=== PATIENT | female | born 1960 | race Caucasian/White ===

== ENCOUNTER 2019-12-31 10:42 | Emergency (ER) | payer MEDICAID, OTHER ==
[~2019-12-31] VITALS: Ht 144.8 cm; Wt 73.0 kg
[~2019-12-31 10:42] MED LIST: DOCU-138; DULO30CA2; LISI10TA5; METF1000; SERT-112; SITA50TA3; ZIPR80CA2
[2019-12-31] MEDS ORDERED: MUPIROCIN 2% OINT 22GM TOP STA (12:39)
[2019-12-31 13:07] VITALS: BP 129/63
== END 2019-12-31 13:13 | disposition home or self-care (01) ==
LOC: ER 10:42
DX: L02.211 Cutaneous abscess of abdominal wall (principal); F20.9 Schizophrenia, unspecified; E11.9 Type 2 diabetes mellitus without complications; Z86.19 Personal history of other infectious and parasitic diseases; Z79.84 Long term (current) use of oral hypoglycemic drugs; Z88.0 Allergy status to penicillin
CPT/HCPCS: 99283

== ENCOUNTER 2020-09-24 15:57 | Emergency (ER) | payer MEDICAID, OTHER ==
[~2020-09-24] VITALS: Ht 144.8 cm; Wt 66.0 kg
[2020-09-24] MEDS ORDERED: LIDOCAINE HCL/EPINEPHRINE 1%-EPI 1:100,000 30 ML VIAL INFIL ONE (16:45)
[2020-09-24] MEDS ORDERED: IBUPROFEN 600MG TABLET PO ONE (16:45)
[2020-09-24 16:46] VITALS: BP 116/78
[2020-09-24] MEDS ORDERED: LIDOCAINE HCL/EPINEPHRINE 1%-EPI 1:100,000 20 ML VIAL INFIL ONE (17:00)
[2020-09-24] MEDS ORDERED: SULF1TAB47 MT (17:13)
== END 2020-09-24 17:23 | disposition home or self-care (01) ==
LOC: ER 15:57
DX: L02.11 Cutaneous abscess of neck (principal); E11.9 Type 2 diabetes mellitus without complications; F20.9 Schizophrenia, unspecified; Z86.19 Personal history of other infectious and parasitic diseases; Z79.84 Long term (current) use of oral hypoglycemic drugs; Z88.0 Allergy status to penicillin
CPT/HCPCS: 10060; 82962; 99282; J3490

== ENCOUNTER 2020-09-26 12:13 | Emergency (ER) | payer OTHER ==
[~2020-09-26] VITALS: Ht 144.8 cm; Wt 73.6 kg
[~2020-09-26 12:13] MED LIST changes: +SULF1TAB47 MT
[2020-09-26 12:23] VITALS: BP 113/84
[2020-09-26] MEDS ORDERED: LIDOCAINE HCL/EPINEPHRINE 1%-EPI 1:100,000 20 ML VIAL INFIL ONE (13:45)
== END 2020-09-26 14:00 | disposition home or self-care (01) ==
LOC: ER 12:13
DX: L02.11 Cutaneous abscess of neck (principal); E11.9 Type 2 diabetes mellitus without complications; Z88.0 Allergy status to penicillin; Z79.899 Other long term (current) drug therapy; Z86.59 Personal history of other mental and behavioral disorders; Z48.00 Encounter for change or removal of nonsurgical wound dressing
CPT/HCPCS: 10060; 82962; 99283

== ENCOUNTER 2020-09-28 10:22 | Emergency (ER) | payer OTHER ==
[~2020-09-28] VITALS: Ht 144.8 cm; Wt 82.0 kg
[2020-09-28 10:23] VITALS: BP 124/67
[2020-09-28] MEDS ORDERED: MUPIROCIN 2% OINT 22GM TOP SCH (10:45)
== END 2020-09-28 11:40 | disposition home or self-care (01) ==
LOC: ER 10:53
DX: L02.811 Cutaneous abscess of head [any part, except face] (principal); L01.00 Impetigo, unspecified; E11.9 Type 2 diabetes mellitus without complications; Z79.899 Other long term (current) drug therapy; Z88.0 Allergy status to penicillin; Z86.19 Personal history of other infectious and parasitic diseases
CPT/HCPCS: 99283

== ENCOUNTER 2021-12-17 07:00 | Emergency (ER) | payer OTHER ==
[~2021-12-17] VITALS: Ht 162.6 cm; Wt 65.0 kg
[~2021-12-17 07:00] MED LIST changes: +LISI10TA26; -LISI10TA5; +ONDA4TAB5 MT
[2021-12-17 08:33] LABS: BASOPHILS % 0.4 % (0.0-2.0); EOSINOPHILS % 0.5 % (0.0-5.0); HEMATOCRIT. 41.4 % (36.0-48.0); HEMOGLOBIN. 14.1 g/dL (12.0-16.0); LYMPHOCYTES % 15.9 % (20.0-50.0); MEAN CORPUSCULAR HEMOGLOBIN 28.8 pg (28.0-32.0); MEAN CORPUSCULAR VOLUME 84.8 fL (81.0-99.0); MEAN PLATELET VOLUME 7.8 fl (7.4-10.4); MONOCYTES % 9.8 % (2.0-8.0); NEUTROPHILS % 73.4 % (40.0-76.0); PLATELET 189 x1000/uL (130-400); RED BLOOD CELL COUNT 4.88 mill/uL (4.2-5.4); RED CELL DISTRIBUTION WIDTH 14.9 % (11.6-14.6)
[2021-12-17 08:43] LABS: CHLORIDE 100 mEq/L (98-107)
[2021-12-17 08:49] LABS: ETHANOL BLOOD < 10 mg/dL
[2021-12-17 09:13] LABS: CLARITY URINE CLEAR (CLEAR); COLOR URINE YELLOW (YELLOW); KETONES URINE NEGATIVE (NEGATIVE); LEUKOCYTE ESTERASE URINE 2+ (NEGATIVE); NITRITE URINE NEGATIVE (NEGATIVE); OCCULT BLOOD URINE NEGATIVE (NEGATIVE); PH URINE 6.5 (4.5-8.0); PROTEIN URINE NEGATIVE (NEGATIVE); SPECIFIC GRAVITY URINE 1.031 (1.005-1.030); UROBILINOGEN URINE 0.2 E.U./dL (0.2-1.0)
[2021-12-17 09:29] LABS: *BARBITURATES SCREEN URINE NEGATIVE (NEGATIVE); *BENZODIAZEPINES SCREEN URINE PRESUMTIVE POSITIVE (NEGATIVE); *COCAINE SCREEN URINE NEGATIVE (NEGATIVE); CANNABINOID URINE SCREEN NEGATIVE (NEGATIVE); METHADONE URINE SCREEN NEGATIVE (NEGATIVE); OPIATES URINE SCREEN NEGATIVE (NEGATIVE); PHENCYCLIDINE URINE SCREEN NEGATIVE (NEGATIVE)
[2021-12-17 09:30] LABS: *AMPHETAMINES SCREEN URINE NEGATIVE (NEGATIVE)
[2021-12-17] MEDS ORDERED: LEVOFLOXACIN 750MG PREMIX 150 ML IV ONE (10:15)
[2021-12-17] MEDS ORDERED: DEXTROSE 50% WATER 50ML SYRINGE IV ONE (11:45)
[2021-12-17] MEDS ORDERED: ACETAMINOPHEN 650MG SUPP PR ONE (16:00)
[2021-12-17 19:40] VITALS: BP 128/71
== END 2021-12-17 20:00 | disposition short-term general hospital (02) ==
LOC: ER 07:00
DX: N39.0 Urinary tract infection, site not specified (principal); G93.49 Other encephalopathy; F20.9 Schizophrenia, unspecified; E78.00 Pure hypercholesterolemia, unspecified; E11.9 Type 2 diabetes mellitus without complications; Z79.84 Long term (current) use of oral hypoglycemic drugs; Z88.0 Allergy status to penicillin; Z20.822 Contact with and (suspected) exposure to COVID-19
CPT/HCPCS: 36415; 70450; 70496; 70498; 71045; 80053; 80305; 80320; 81003; 82962; 84484; 85025; 87086; 87426; 93005; 96374; 96375; 99285; J1956; G0480

== ENCOUNTER 2022-03-23 18:46 | Emergency (ER) | payer OTHER ==
[~2022-03-23] VITALS: Ht 162.6 cm; Wt 70.0 kg
[2022-03-23 19:53] LABS: BASOPHILS % 0.7 % (0.0-2.0); EOSINOPHILS % 1.4 % (0.0-5.0); HEMATOCRIT. 43.9 % (36.0-48.0); HEMOGLOBIN. 14.8 g/dL (12.0-16.0); LYMPHOCYTES % 39.6 % (20.0-50.0); MEAN CORPUSCULAR HEMOGLOBIN 28.8 pg (28.0-32.0); MEAN CORPUSCULAR VOLUME 85.4 fL (81.0-99.0); MEAN PLATELET VOLUME 7.8 fl (7.4-10.4); MONOCYTES % 7.4 % (2.0-8.0); NEUTROPHILS % 50.9 % (40.0-76.0); PLATELET 204 x1000/uL (130-400); RED BLOOD CELL COUNT 5.14 mill/uL (4.2-5.4); RED CELL DISTRIBUTION WIDTH 13.1 % (11.6-14.6)
[2022-03-23 20:03] LABS: CHLORIDE 104 mEq/L (98-107)
[2022-03-23 20:10] LABS: ETHANOL BLOOD 221 mg/dL
[2022-03-24 04:05] VITALS: BP 109/67
== END 2022-03-24 04:15 | disposition home or self-care (01) ==
LOC: ER 18:46
DX: F10.129 Alcohol abuse with intoxication, unspecified (principal); E11.9 Type 2 diabetes mellitus without complications; E78.00 Pure hypercholesterolemia, unspecified; F20.9 Schizophrenia, unspecified; Y90.7 Blood alcohol level of 200-239 mg/100 ml; Z79.84 Long term (current) use of oral hypoglycemic drugs; Z88.0 Allergy status to penicillin
CPT/HCPCS: 36415; 80053; 80320; 85025; 99285; G0480

== ENCOUNTER 2022-10-08 10:33 | Emergency (ER) | payer MEDICAID, OTHER ==
[~2022-10-08] VITALS: Ht 157.5 cm; Wt 69.0 kg
[2022-10-08] MEDS ORDERED: ASPIRIN 81MG TABLET PO ONE (11:00)
[2022-10-08 11:24] LABS: CHLORIDE 102 mEq/L (98-107)
[2022-10-08 11:32] LABS: ETHANOL BLOOD < 10 mg/dL
[2022-10-08 11:39] LABS: HEMATOCRIT. 44.5 % (36.0-48.0); MEAN CORPUSCULAR HEMOGLOBIN 28.7 pg (28.0-32.0); MEAN CORPUSCULAR VOLUME 85.2 fL (81.0-99.0); PLATELET 152 x1000/uL (130-400); RED BLOOD CELL COUNT 5.23 mill/uL (4.2-5.4); RED CELL DISTRIBUTION WIDTH 13.6 % (11.6-14.6)
[2022-10-08 12:54] LABS: PLATELET ESTIMATE NORMAL
[2022-10-08 13:00] VITALS: BP 118/61
[2022-10-08 14:58] LABS: CLARITY URINE CLOUDY (CLEAR); COLOR URINE YELLOW (YELLOW); KETONES URINE NEGATIVE (NEGATIVE); LEUKOCYTE ESTERASE URINE 3+ (NEGATIVE); NITRITE URINE NEGATIVE (NEGATIVE); OCCULT BLOOD URINE TRACE (NEGATIVE); PROTEIN URINE TRACE (NEGATIVE); SPECIFIC GRAVITY URINE 1.023 (1.005-1.030); UROBILINOGEN URINE 0.2 E.U./dL (0.2-1.0)
== END 2022-10-08 16:11 | disposition admitted as inpatient to this hospital (09) ==
LOC: ER 10:33
DX: R07.89 Other chest pain (principal); I25.2 Old myocardial infarction; I10 Essential (primary) hypertension; E78.00 Pure hypercholesterolemia, unspecified; E11.9 Type 2 diabetes mellitus without complications; Z20.822 Contact with and (suspected) exposure to COVID-19; Z88.0 Allergy status to penicillin; Z79.899 Other long term (current) drug therapy; Z86.59 Personal history of other mental and behavioral disorders
CPT/HCPCS: 36415; 71045; 80053; 80320; 81003; 84145; 84484; 85025; 87086; 87426; 87804; 93005; 99285; C9803; Z7610; G0480

== ENCOUNTER 2023-10-13 11:59 | Emergency (ER) | payer MEDICAID, OTHER ==
[~2023-10-13] VITALS: Ht 157.5 cm; Wt 55.0 kg
[2023-10-13 12:05] VITALS: O2SAT 99
[2023-10-13 12:46] LABS: BASOPHILS % 0.8 % (0.0-2.0); HEMATOCRIT. 41.1 % (36.0-48.0); HEMOGLOBIN. 13.9 g/dL (12.0-16.0); LYMPHOCYTES % 27.1 % (20.0-50.0); MEAN CORPUSCULAR HEMOGLOBIN 27.7 pg (28.0-32.0); MEAN CORPUSCULAR HGB CONC 33.8 g/dL (31.0-37.0); MEAN CORPUSCULAR VOLUME 81.8 fL (81.0-99.0); MEAN PLATELET VOLUME 7.9 fl (7.4-10.4); MONOCYTES % 9.9 % (2.0-8.0); NEUTROPHILS % 59.2 % (40.0-76.0); PLATELET 128 x1000/uL (130-400); RED BLOOD CELL COUNT 5.02 mill/uL (4.2-5.4); RED CELL DISTRIBUTION WIDTH 14.3 % (11.6-14.6); WHITE BLOOD COUNT 2.8 x1000/uL (4.5-11.0)
[2023-10-13 13:11] LABS: ALANINE AMINOTRANSFERASE 8 IU/L (10-49); ASPARTATE AMINOTRANSFERASE 17 IU/L (<34); BILIRUBIN TOTAL 0.4 mg/dL (0.1-1.0); CALCIUM 9.7 mg/dL (8.7-10.4); CARBON DIOXIDE 29 mEq/L (21-32); CHLORIDE 105 mEq/L (98-107); CREATININE 0.6 mg/dL (0.6-1.0); GLUCOSE 159 mg/dL (70-105); POTASSIUM 4.7 mEq/L (3.5-5.1); PROTEIN TOTAL 8.4 g/dL (6.0-8.3); SODIUM 139 mEq/L (136-145); UREA NITROGEN BLOOD 6 mg/dL (9-23)
[2023-10-13] MEDS ORDERED: IOHEXOL-300 100 ML BOTTLE ONE (14:12)
[2023-10-13] MEDS ORDERED: POLY17PO3 MT (14:19)
[2023-10-13 14:35] VITALS: BP 135/73; PULSE 87; RESP 14; TEMP 98.4
== END 2023-10-13 14:47 | disposition home or self-care (01) ==
LOC: ER 11:59
DX: R10.9 Unspecified abdominal pain (principal); E78.00 Pure hypercholesterolemia, unspecified; E11.9 Type 2 diabetes mellitus without complications; I25.2 Old myocardial infarction; I10 Essential (primary) hypertension; Z88.0 Allergy status to penicillin; Z79.899 Other long term (current) drug therapy; Z86.59 Personal history of other mental and behavioral disorders
CPT/HCPCS: 99285; 74177; 80053; 83690; 85025; 36415; 71101; Q9967